=== PATIENT | male | born 2000 | race Caucasian/White ===

== ENCOUNTER 2021-05-21 19:09 | Emergency (ER) | payer OTHER ==
[~2021-05-21 19:09] MED LIST: ATARAX25 MG PO; BACLOFEN 10MG T10 MG PO; ELAVIL50 MG PO; KETOROLAC TROME10 MG PO
[2021-05-21 21:25] LABS: BASOPHIL 0.8 % (0-2); EOSINOPHIL 3.3 % (0-5); HCT 42.5 % (42.0-52.0); HGB 13.6 g/dl (13.2-18.0); LYMPHOCYTE 28.7 % (15-48); MCH 27.5 pg (25.0-31.0); MONOCYTE 9.3 % (0-12); MPV 9.6 fL (6.0-9.5); NEUTROPHIL 57.8 % (41-80); NRBC 0; PLT 337 K/uL (150-400); RBC 4.94 M/uL (4.70-6.00); RDW 13.1 % (11.5-14.0); WBC 7.6 K/uL (4.0-10.5)
[2021-05-21 21:48] LABS: BUN/CREAT RATIO (CALC) 11.8 RATIO; CREATININE 0.68 mg/dL (0.67-1.17)
[2021-05-21] MEDS ORDERED: AUGMENTIN 875-1 EACH PO (23:17)
== END 2021-05-21 23:29 | disposition home or self-care (01) ==
LOC: FER 19:09
PROVIDERS: Nurse Practitioner Family
DX: H66.92 Otitis media, unspecified, left ear (principal); R59.0 Localized enlarged lymph nodes; Z88.1 Allergy status to other antibiotic agents
CPT/HCPCS: 36415; 70450; 70491; 80048; 85025; J1885; J7030; Q9967